=== PATIENT | male | born 2000 | race Caucasian/White ===

== ENCOUNTER 2024-02-03 05:48 | Emergency (ER) | payer MEDICAID ==
[~2024-02-03] VITALS: Ht 167.6 cm; Wt 64.9 kg
[2024-02-03 05:51] VITALS: TEMP 98.4
[2024-02-03 08:00] VITALS: BP 105/77; PULSE 71; RESP 18; O2SAT 100
== END 2024-02-03 08:01 | disposition home or self-care (01) ==
LOC: ER 05:49
DX: S29.012A Strain of muscle and tendon of back wall of thorax, initial encounter (principal); R10.9 Unspecified abdominal pain; M79.10 Myalgia, unspecified site; X58.XXXA Exposure to other specified factors, initial encounter; Y93.89 Activity, other specified; Y92.89 Other specified places as the place of occurrence of the external cause; Y99.8 Other external cause status
CPT/HCPCS: 71045; 99283